=== PATIENT | female | born 2000 ===

== ENCOUNTER → 2021-09-03 15:47 | Outpatient (CLI) | payer OTHER, SELFPAY ==
--- NOTE | 2021-09-03 | DI.ECHO.S_ITS ---
[facility] +---------+ : : [address] : [address] : : : : [id number] : : : : Phone: [phone]---------+ Echocardiogram Report + + :Name: ALAN FAULKNER Study Date: 09/03/2021 Height: 67 in : :[facility] ReadingLocation: Weight: 145 lb : : Gender: Female BSA: 1.8 m2 : :: 2000 Age: 21 yrs BP: 121/67 mmHg: :Reason For Study: Encounter for general adult medical exam : : Performed By: AVI JIMENEZ : :Referring: RAMILA CASILLAS : + + Interpretation Summary Left ventricular systolic function is normal with an estimated ejection fraction of 55 to 60% without any focal wall motion abnormality. Left ventricular size and wall thickness appear normal. Diastolic function is likely normal with normal filling pressures. The right ventricle is not well visualized but may be borderline enlarged yet has normal systolic function. Right ventricular systolic pressure cannot be estimated but CVP is around 3 mmHg. Both atria are normal in size. There is mild pulmonic valve regurgitation but no other significant valvular abnormalities. Procedure: A two-dimensional transthoracic echocardiogram with color flow and Doppler was performed. The study quality was technically adequate. There is no prior echocardiogram noted for this patient. The patient was in normal sinus rhythm during the exam. Left Ventricle: The left ventricle appears normal in size, wall thickness, and systolic function without any focal wall motion abnormalities. The ejection fraction is estimated to be 55-60%. Diastolic parameters suggest probable normal left ventricular diastolic function and normal filling pressures. Right Ventricle: The right ventricle is not well visualized. The right ventricle is borderline dilated. The right ventricular systolic function is normal. Atria: Both atria are normal in size. There is no Doppler evidence for an interatrial shunt. Mitral Valve: The mitral valve is normal. There is trace mitral regurgitation. Aortic Valve: The aortic valve is grossly normal. The aortic valve opens well. There is trace aortic regurgitation. Tricuspid Valve: The tricuspid valve is normal. There is a trace or physiologic amount of tricuspid regurgitation. Pulmonary artery pressures cannot be estimated because of the lack of a measurable TR jet velocity but the IVC suggests a CVP of around 3 mmHg. Pulmonic Valve: The pulmonic valve leaflets are thin and pliable; valve motion is normal. There is mild pulmonic regurgitation. There is no other significant valvular heart disease. Great Vessels: The aortic root is normal size. The ascending aorta is normal in size. The aortic arch is normal in size. The IVC is of normal diameter and collapses greater than 50% with a sniff. This suggests a low right atrial pressure of 3 mm Hg. Pericardium/ Pleura There is no pericardial effusion. There is an anterior echo-free space consistent with a fat pad. There is no pleural effusion. MMode/2D Measurements & Calculations LVIDd: 4.3 cm LVOT diam: 1.6 cm LVIDs: 2.9 cm Ao root diam: 1.9 cm FS: 34.2 % asc Aorta Diam: 2.4 cm IVSd: 0.60 cm LVPWd: 0.77 cm LV self. diameter/BSA (cm/m^2): 2.5 LV sys. diameter/BSA (cm/m^2): 1.6 LA A2 area: 10.7 cm2 RA long axis: 4.4 cm LA A4 area: 13.0 cm2 RA area: 15.0 cm2 LA length (vol): 4.4 cm RA vol: 43.8 ml LA vol: 27.0 ml RA : 24.8 ml/m2 LA vol index: 15.3 ml/m2 IVC diam: 1.5 cm RVD1 (basal): 4.8 cm TAPSE: 2.4 cm Doppler Measurements & Calculations Ao V2 max: 156.5 cm/sec LVOT Max Damian: 111.7 cm/sec Ao V2 mean: 108.1 cm/sec LV V1 max P.0 mmHg Ao max P.8 mmHg LV V1 VTI: 24.5 cm Ao mean P.1 mmHg CARLOZ(I,D): 1.4 cm2 Ao V2 VTI: 34.8 cm CARLOZ(V,D): 1.4 cm2 sev ratio: 0.70 CARLOZ indexed to BSA (cm^2/m^2): 0.80 MV E max damian: 88.0 cm/sec PA V2 max: 94.5 cm/sec MV A max damian: 42.2 cm/sec PA V2 mean: 66.1 cm/sec MV E/A: 2.1 PA mean P.0 mmHg Med Peak E' Damian: 14.0 cm/sec PA pr(Accel): 12.2 mmHg E/E' med: 6.3 Lat Peak E' Damian: 8.8 cm/sec E/E' lat: 9.9 E/e' average: 8.1 MV dec time: 0.19 sec SV(LVOT): 48.8 ml Reading Physician:04:50 PM
== END ==
PROVIDERS: Referring Provider Nurse Practitioner Family; Visit Provider Nurse Practitioner Family
DX: Z00.00 Encounter for general adult medical examination without abnormal findings (principal); I37.1 Nonrheumatic pulmonary valve insufficiency
CPT/HCPCS: 93306